=== PATIENT | male | born 1995 | race Caucasian/White ===

== ENCOUNTER 2018-04-13 04:21 | Emergency (ER) | payer OTHER ==
[2018-04-13 05:12] VITALS: BMI 26.6
[2018-04-13] MEDS ORDERED: Lidocaine/Epi 1% 1:100000 20 ML IJ ONE (05:14)
[2018-04-13] MEDS ORDERED: Tdap Vaccine 0.5 ml Vial (10-64 yrs) IM ONE ×2 (05:14→05:31)
[2018-04-13 05:22] VITALS: O2SAT 99
[2018-04-13] MEDS ORDERED: Lidocaine 1% w Epi 1:100,000 Inj ONE (05:30)
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
[2018-04-13 08:49] VITALS: BP 136/77; PULSE 83; RESP 16; TEMP 98.4
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
== END 2018-04-13 08:40 | disposition home or self-care (01) ==
LOC: H.ER 04:21
DX: S01.412A Laceration without foreign body of left cheek and temporomandibular area, initial encounter (principal); Y04.0XXA Assault by unarmed brawl or fight, initial encounter; Y92.89 Other specified places as the place of occurrence of the external cause